=== PATIENT | male | born 1950 | race Caucasian/White ===

== ENCOUNTER 2017-09-19 15:18 | Emergency (ER) | payer OTHER ==
--- NOTE | 2017-09-19 15:24 | PDOC ---
History of Present Illness - General Chief Complaint: Pain Stated Complaint: HIP PAIN Time Seen by Provider: 09/19/17 15:23 Past History - Past Medical History Allergies/Adverse Reactions: Allergies Allergy/AdvReac Type Severity Reaction Status Date / Time No Known Allergies Allergy Verified 09/19/17 15:21
[2017-09-19 15:37] VITALS: TEMP 98.6; BMI 28.8
--- NOTE | 2017-09-19 17:17 | PDOC ---
History of Present Illness - General History Source: Patient Exam Limitations: No Limitations - History of Present Illness Initial Comments: 09/19/17 18:41 The patient is a 66-year-old male living at [facility], with a significant past medical history of HTN, COPD, paranoid schizophrenia, who presents to the ED with left hip discomfort and difficulty ambulating today. The patient states that he feels unsteady on his feet. He denies any falls or injuries. He reports experiencing these symptoms in the past. It is unclear when the patient was last walking normally. The patient denies any fever, chills, nausea, vomiting, diarrhea, or abdominal pain. Denies any chest pain or shortness of breath. Denies any urinary complaints or changes in bowel movement. Denies any dizziness or lightheadedness. Denies any headache. Allergies: NKA <Nayely Bowling - Last Filed: 09/19/17 18:43> <Neo Mcdonnell - Last Filed: 09/19/17 19:40> - General Chief Complaint: Pain Stated Complaint: HIP PAIN Time Seen by Provider: 09/19/17 15:23 Past History <Nayely Bowling - Last Filed: 09/19/17 18:43> - Past Medical History COPD: Yes Psychiatric Problems: Yes (schizophrenia parnoid type) Other medical history: hep c - Suicide/Smoking/Psychosocial Hx Smoking History: Current every day smoker Have you smoked in the past 12 months: No Number of Cigarettes Smoked Daily: 15 Information on smoking cessation initiated: No Hx Alcohol Use: No Drug/Substance Use Hx: No Substance Use Type: None <Neo Mcdonnell - Last Filed: 09/19/17 19:40> - Past Medical History Allergies/Adverse Reactions: Allergies Allergy/AdvReac Type Severity Reaction Status Date / Time No Known Allergies Allergy Verified 09/19/17 15:26 Home Medications: Ambulatory Orders Aspirin [ASA -] 81 mg PO DAILY 09/19/17 Divalproex [Depakote -] 500 mg PO BID 09/19/17 Fenofibrate Nanocrystallized [Fenofibrate] 145 mg PO DAILY 09/19/17 Quetiapine Fumarate [Seroquel -] 50 mg PO HS 09/19/17 Review of Systems - Review of Systems Able to Perform ROS?: Yes Comments:: 09/19/17 18:49 A complete review of 10 out of 10 review of systems is taken and is negative apart from what is previously mentioned below and in the HPI. <Nayely Bowling - Last Filed: 09/19/17 18:43> *Physical Exam - Vital Signs Last Vital Signs Temp Pulse Resp BP Pulse Ox 98.6 F 59 L 16 127/75 100 09/19/17 15:20 09/19/17 15:20 09/19/17 15:20 09/19/17 15:20 09/19/17 15:20 - Physical Exam Comments: 09/19/17 18:49 Vitals: Triage Vital signs reviewed General Appearance: no acute distress, well nourished well developed, Head: Atraumatic, normocephalic Eyes: Pupils equal reactive round, extraocular movement intact Neck: Supple;No Nuchal rigidity Chest Wall: Nontender Cardiac: Regular rate and rhythm, no murmurs, no rubs, no gallops, Lungs: Clear to auscultation bilateral, good air movement bilaterally, Abdomen: Soft, nondistended, normal bowel sounds, nontender to palpation Rectal: Exam deferred Extremities: (+)Left inguinal pelvic pain, left leg weakness. No cyanosis, clubbing, or edema Skin: Warm and dry, no rashes or lesions, no petechiae Neuro: AOX3; Cranial Nerves 2-12 grossly intact, Sensation intact to all extremities Psych: normal mood, normal affect <Nayely Bowling - Last Filed: 09/19/17 18:43> - Vital Signs Last Vital Signs Temp Pulse Resp BP Pulse Ox 98.6 F 59 L 16 127/75 100 09/19/17 15:20 09/19/17 15:20 09/19/17 15:20 09/19/17 15:20 09/19/17 15:20 <Neo Mcdonnell - Last Filed: 09/19/17 19:40> Heart Score/ECG Review - ECG Impressions Comment:: 09/19/17 18:32 <Neo Mcdonnell - Last Filed: 09/19/17 19:40> ED Treatment Course - LABORATORY CBC & Chemistry Diagram: 09/19/17 17:33 09/19/17 17:33 <Nayely Bowling - Last Filed: 09/19/17 18:43> - LABORATORY CBC & Chemistry Diagram: 09/19/17 17:33 09/19/17 17:33 <Neo Mcdonnell - Last Filed: 09/19/17 19:40> Medical Decision Making - Medical Decision Making Addendum: Patient's neurologic motor examination. He has good strength at the foot with flexion good strength at the knee and is able to hold his left leg above the bed for greater than 5 seconds however during this portion examination patient began to experience pain and discomfort in his hip Patient complaining of left hip discomfort difficulty walking states has had this issue in the past although secondary schizophrenia unclear exact onset. Denies history of trauma. Leg is slightly weak but this may be secondary to pain. It appears that he has had difficulty walking all morning unclear last normal potentially yesterday or even earlier We will obtain head CT labs hip x-ray pain medication observing reassessed. Reevaluation patient able to comfortably walk around the emergency department after IV Tylenol. No acute findings on imaging just some arthritis in the left hip. Patient provided with orthopedic follow-up Findings, the need for follow-up and strict return instructions discussed with patient. 09/19/17 19:39 <Neo Mcdonnell - Last Filed: 09/19/17 19:40> *DC/Admit/Observation/Transfer - Attestations Scribe Attestion: 09/19/17 18:51 Documentation prepared by Nayely Bowling, acting as medical technicians for Neo Mcdonnell MD. <Nayely Bowling - Last Filed: 09/19/17 18:43> - Discharge Dispostion Decision to Admit order: No <Neo Mcdonnell - Last Filed: 09/19/17 19:40> Diagnosis at time of Disposition: Hip pain Qualifiers: Laterality: left Qualified Code(s): M25.552 - Pain in left hip - Discharge Dispostion Disposition: HOME - Referrals Referrals: Vitaliy Murray MD [Staff Physician] - - Patient Instructions Printed Discharge Instructions: DI for Osteoarthritis Additional Instructions: Ice affected hip 20 minutes on 20 minutes off. Take [id number] Tylenol as directed on package. Follow-up with Dr. Mark orthopedics within 1-2 days. Return to emergency Department for severe worsening symptoms or for any concerns.
[2017-09-19] MEDS ORDERED: ACETAMINOPHEN 1000 MG/100 ML VIAL (NON FORMULARY) IVPB ONE (17:42)
[2017-09-19] MEDS ORDERED: ACETAMINOPHEN INJECTION 100 ML IVPB ONE (17:43)
[2017-09-19 18:06] LABS: BASO % 0.6 % (0-2.0); EOS % 4.4 % (0-4.5); HEMOGLOBIN 13.9 GM/dL (11.7-16.9); LYMPH % 41.9 % (8-40); MCH 31.8 pg (25.7-33.7); MCHC 33.9 g/dl (32.0-35.9); MEAN CELL VOLUME 93.8 fl (80-96); MEAN PLT VOLUME 7.6 fl (7.5-11.1); MONO % 9.9 % (3.8-10.2); NEUT % 43.2 % (42.8-82.8); PLATELET COUNT 268 K/MM3 (134-434); RBC 4.37 M/mm3 (4.00-5.60); RDW 14.1 % (11.9-15.9); WHITE BLOOD COUNT 9.4 K/mm3 (4.0-10.0)
[2017-09-19 18:28] VITALS: BP 125/72; PULSE 61
[2017-09-19 18:34] LABS: ALBUMIN 3.3 g/dl (3.4-5.0); ANION GAP 7 (8-16); BLOOD UREA NITROGEN 13 mg/dL (7-18); CHLORIDE 98 mmol/L (98-107); CO2 29 mmol/L (21-32); CREATININE 0.6 mg/dL (0.7-1.3); GLUCOSE,RANDOM 79 mg/dL (74-106); POTASSIUM 5.5 mmol/L (3.5-5.1); SGOT/AST 33 U/L (15-37); SGPT/ALT 38 U/L (12-78); SODIUM 134 mmol/L (136-145)
[2017-09-19 18:35] LABS: ALK PHOS 46 U/L (45-117); BILIRUBIN,TOTAL 0.5 mg/dL (0.2-1.0)
[2017-09-19 19:51] LABS: URINE APPEARANCE CLEAR; URINE BILIRUBIN NEGATIVE (<2.0 mg/dL); URINE COLOR DKYELLOW; URINE GLUCOSE (UA) NEGATIVE (NEGATIVE); URINE KETONE TRACE (NEGATIVE); URINE LEUK ESTERASE NEGATIVE (NEGATIVE); URINE NITRITE NEGATIVE (NEGATIVE); URINE PROTEIN NEGATIVE (NEGATIVE); URINE UROBILINOGEN 4.0 E.U/dl mg/dL (0.2-1.0)
--- NOTE | 2017-09-20 09:14 | EKG ---
Test Reason : Blood Pressure : / mmHG Vent. Rate : 058 BPM Atrial Rate : 058 BPM P-R Int : 144 ms QRS Dur : 096 ms QT Int : 402 ms P-R-T Axes : 049 045 059 degrees QTc Int : 394 ms SINUS BRADYCARDIA NON-SPECIFIC INTRA-VENTRICULAR CONDUCTION DELAY WHEN COMPARED WITH ECG OF 18-APR-2006 16:53, NO SIGNIFICANT CHANGE WAS FOUND Confirmed by KESHIA WAGONER MD ([id number]) on 09/20/2017 9:14:05 AM Referred By: Confirmed By:KESHIA WAGONER MD
== END 2017-09-19 21:44 | disposition home or self-care (01) ==
LOC: JER 15:18
PROC: 3E033NZ Introduction of Analgesics, Hypnotics, Sedatives into Peripheral Vein, Percutaneous Approach (ICD-10-PCS; principal; 2017-09-19)
DX: M13.852 Other specified arthritis, left hip (principal); I10 Essential (primary) hypertension; J44.9 Chronic obstructive pulmonary disease, unspecified; F20.0 Paranoid schizophrenia; F17.210 Nicotine dependence, cigarettes, uncomplicated; Z79.82 Long term (current) use of aspirin
CPT/HCPCS: 36415; 70450-TC; 71045-TC-FY; 73523-TC-FY; 80053; 81003; 85025; 87086; 93005; 93010; 99284-25; J0131

== ENCOUNTER 2017-10-29 12:13 | Observation (INO) | payer OTHER ==
[2017-10-29 12:39] VITALS: BMI 23.3
--- NOTE | 2017-10-29 13:37 | PDOC ---
History of Present Illness - General Chief Complaint: Weakness Stated Complaint: WEAKNESS - History of Present Illness Initial Comments: 10/29/17 14:06 66-year-old male presents to the emergency room for evaluation of generalized weakness over the past 2 weeks associated with cough. Patient denies fever, chills but states 3 weeks "tripped over tile and landed on his left side but denies any head injury and went to [facility] emergency room where he was cleared and sent back to his assisted living facility where he resides. Patient denies recent change in medications, recent travel, recent illness. Patient does have history of COPD secondary to smoking and schizophrenia paranoid type. Past History - Past Medical History Allergies/Adverse Reactions: Allergies Allergy/AdvReac Type Severity Reaction Status Date / Time No Known Allergies Allergy Verified 09/19/17 15:26 Home Medications: Ambulatory Orders Aspirin [ASA -] 81 mg PO DAILY 09/19/17 Divalproex [Depakote -] 500 mg PO BID 09/19/17 Fenofibrate Nanocrystallized [Fenofibrate] 145 mg PO DAILY 09/19/17 Quetiapine Fumarate [Seroquel -] 50 mg PO HS 09/19/17 COPD: Yes Psychiatric Problems: Yes (schizophrenia parnoid type) - Suicide/Smoking/Psychosocial Hx Smoking History: Current every day smoker Have you smoked in the past 12 months: Yes Number of Cigarettes Smoked Daily: 20 Information on smoking cessation initiated: No Hx Alcohol Use: No Drug/Substance Use Hx: No Substance Use Type: None *Physical Exam - Vital Signs Last Vital Signs Temp Pulse Resp BP Pulse Ox 99.7 F H 70 20 122/83 97 10/29/17 12:37 10/29/17 12:37 10/29/17 12:37 10/29/17 12:37 10/29/17 12:37 - Physical Exam General Appearance: Yes: Nourished, Appropriately Dressed. No: Apparent Distress HEENT: positive: EOMI, NATE, TMs Normal, Pharynx Normal. negative: Pale Conjunctivae Neck: positive: Supple Respiratory/Chest: positive: Lungs Clear, Normal Breath Sounds. negative: Respiratory Distress, Accessory Muscle Use Cardiovascular: positive: Regular Rhythm, Regular Rate. negative: Murmur Gastrointestinal/Abdominal: positive: Soft. negative: Tenderness Extremity: positive: Normal Capillary Refill. negative: Pedal Edema Integumentary: positive: Dry, Warm Neurologic: positive: Motor Strength 5/5 (ambulatory) Heart Score/ECG Review - ECG Intrepretation Rhythm: Regular Rhythm (Rate 59. Normal sinus rhythm. No ST elevation or depression. Intervals are regular.) ED Treatment Course - LABORATORY CBC & Chemistry Diagram: 10/29/17 15:00 10/29/17 15:00 Medical Decision Making - Medical Decision Making 10/29/17 14:06 Patient here for evaluation of generalized weakness, cough for the past 3 weeks without any associated symptoms. Patient states that there is no consistency of COPD patient ordered for labs, chest x-ray, EKG and urine. 10/29/17 16:41 Laboratory Tests 10/29/17 10/29/17 10/29/17 15:00 15:00 15:00 WBC 9.3 Hgb 13.8 Hct 40.1 Neutrophils % 48.1 Sodium 129 L Potassium 5.1 Chloride 98 Carbon Dioxide 30 Anion Gap 1 L BUN 7 Creatinine 0.7 Random Glucose 91 Lactic Acid 2.7 H* Calcium 9.1 Magnesium 2.0 Total Bilirubin 0.4 ALT 35 Alkaline Phosphatase 59 Creatine Kinase 282 Creatine Kinase Index 1.0 Total Protein 7.1 Albumin 3.5 Lipase ordered. 2 L of normal saline ordered secondary to hyponatremia elevated lactic acid. 10/29/17 16:42 Chest x-ray negative for infiltrate. Urine pending 10/29/17 18:35 Laboratory Tests 10/29/17 18:19 VBG pH 7.46 H POC VBG pCO2 25.6 L POC VBG pO2 77.2 H Mixed VBG HCO3 17.9 L Case discussed Surendra, resident for hospitalist service. Will admit to m/s obs. *DC/Admit/Observation/Transfer Diagnosis at time of Disposition: Hyponatremia, Weakness, Elevated lactic acid level - Discharge Dispostion Decision to Admit order: Yes - Referrals Referrals: Ulises Garcia [Primary Care Provider] - - Patient Instructions - Post Discharge Activity
[2017-10-29 15:29] LABS: BASO % 0.4 % (0-2.0); HEMATOCRIT 40.1 % (35.4-49); HEMOGLOBIN 13.8 GM/dL (11.7-16.9); LYMPH % 40.8 % (8-40); MCH 32.2 pg (25.7-33.7); MCHC 34.3 g/dl (32.0-35.9); MEAN CELL VOLUME 93.8 fl (80-96); MONO % 8.7 % (3.8-10.2); NEUT % 48.1 % (42.8-82.8); PLATELET COUNT 318 K/MM3 (134-434); RBC 4.28 M/mm3 (4.00-5.60); RDW 14.7 % (11.9-15.9); WHITE BLOOD COUNT 9.3 K/mm3 (4.0-10.0)
[2017-10-29 15:50] LABS: ALBUMIN 3.5 g/dl (3.4-5.0); ANION GAP 1 (8-16); BILIRUBIN,TOTAL 0.4 mg/dL (0.2-1.0); BLOOD UREA NITROGEN 7 mg/dL (7-18); CALCIUM 9.1 mg/dL (8.5-10.1); CHLORIDE 98 mmol/L (98-107); CO2 30 mmol/L (21-32); CREATININE 0.7 mg/dL (0.7-1.3); GLUCOSE,RANDOM 91 mg/dL (74-106); POTASSIUM 5.1 mmol/L (3.5-5.1); SGOT/AST 26 U/L (15-37); SGPT/ALT 35 U/L (12-78); SODIUM 129 mmol/L (136-145); TOT PROT 7.1 g/dl (6.4-8.2)
[2017-10-29 15:53] LABS: ALK PHOS 59 U/L (45-117)
[2017-10-29] MEDS ORDERED: SODIUM CHLORIDE 1,000 ML IV STA ×2 (16:40→16:41)
[2017-10-29 18:33] LABS: VENOUS PH 7.46 (7.32-7.42)
[2017-10-29 18:34] LABS: VENOUS PC02 25.6 mmHg (38-52); VENOUS PO2 77.2 mmHg (28-48)
[2017-10-29 19:13] LABS: URINE APPEARANCE CLEAR; URINE BILIRUBIN NEGATIVE (<2.0 mg/dL); URINE COLOR YELLOW; URINE GLUCOSE (UA) NEGATIVE (NEGATIVE); URINE KETONE NEGATIVE (NEGATIVE); URINE LEUK ESTERASE NEGATIVE (NEGATIVE); URINE NITRITE NEGATIVE (NEGATIVE); URINE PROTEIN NEGATIVE (NEGATIVE)
--- NOTE | 2017-10-29 21:58 | HP ---
CHIEF COMPLAINT: weakness PCP: Dr. Ulises Garcia HISTORY OF PRESENT ILLNESS: Pt is a 66 y/o M with PMH COPD, kidney stones, Hep C (failed s/p failed interferon therapy), ? cirrhosis, [facility] Paranoid Schizophrenia who presents to ED from [facility] for weakness and unsteady gait. Pt is an inconsistent historian. Pt unclear about duration of symptoms; initially stated 2 weeks, later stated 6 months, and later reported 10 years of symptoms. Pt states he had a fall in which he hit his left ribs. He went to [facility] at that time and reports being told that he had "contusions" on his ribs. ER course was notable for: (1) labs significant for Na 129, LA 2.7 -> 0.8 (s/p NS) (2) CXR unremarkable (3) Recent Travel: denies PAST MEDICAL HISTORY: COPD, kidney stones, Hep C (failed s/p failed interferon therapy), ? cirrhosis, BPH (sees [facility]), Paranoid Schizophrenia PAST SURGICAL HISTORY: denies Social History: Smokinppd x 40 years Alcohol: heavy drinker 30 years ago Drugs: marijuana, LSD, heroin (quit in 1974, not on methadone), cocaine, and "others". Pt has history of IVDA many years ago. Family History: Allergies No Known Allergies Allergy (Verified 10/29/17 19:01) HOME MEDICATIONS: Home Medications Medication Instructions Recorded Aspirin [ASA -] 81 mg PO DAILY 09/19/17 Divalproex [Depakote -] 500 mg PO BID 09/19/17 Fenofibrate Nanocrystallized 145 mg PO DAILY 09/19/17 [Fenofibrate] Quetiapine Fumarate [Seroquel -] 50 mg PO HS 09/19/17 REVIEW OF SYSTEMS CONSTITUTIONAL: Absent: fever, chills, diaphoresis, generalized weakness, malaise, loss of appetite, weight change HEENT: Absent: rhinorrhea, nasal congestion, throat pain, throat swelling, difficulty swallowing, mouth swelling, ear pain, eye pain, visual changes CARDIOVASCULAR: Absent: chest pain, syncope, palpitations, irregular heart rate, lightheadedness , peripheral edema RESPIRATORY: Absent: cough, shortness of breath, dyspnea with exertion, orthopnea, wheezing, stridor, hemoptysis GASTROINTESTINAL: Absent: abdominal pain, abdominal distension, nausea, vomiting, diarrhea, constipation, melena, hematochezia GENITOURINARY: Absent: dysuria, frequency, urgency, hesitancy, hematuria, flank pain, genital pain MUSCULOSKELETAL: Absent: myalgia, arthralgia, joint swelling, back pain, neck pain SKIN: Absent: rash, itching, pallor HEMATOLOGIC/IMMUNOLOGIC: Absent: easy bleeding, easy bruising, lymphadenopathy, frequent infections ENDOCRINE: Absent: unexplained weight gain, unexplained weight loss, heat intolerance, cold intolerance NEUROLOGIC: generalized weakness, unsteady gait Absent: headache, focal weakness or paresthesias, dizziness, seizure, mental status changes, bladder or bowel incontinence PSYCHIATRIC: Absent: anxiety, depression, suicidal or homicidal ideation, hallucinations. PHYSICAL EXAMINATION Vital Signs - 24 hr 10/29/17 10/29/17 12:37 16:45 Temperature 99.7 F H 98.6 F Pulse Rate 70 Pulse Rate [ 82 Apical] Respiratory 20 16 Rate Blood Pressure 122/83 Blood Pressure 138/78 [Left Arm] O2 Sat by Pulse 97 99 Oximetry (%) Gen: NAD, AAOx3 HEENT: NCAT, PERRL, EOMI Neck: supple, no jvd Cardio: distant heart sounds, normal s1s2, rrr, no m/r/g Pulm: Cta b/l Abd: soft, nontender, +BS, RUQ nontender mass (attached to deep structures and freely mobile on deep respirations), palpable abdominal aortic pulsation, no abdominal bruits Ext: 2+ pulses, no edema Neuro: no focal deficits. CN 2-12 intact. Strength/sensation throughout. Gait unremarkable. Laboratory Results - last 24 hr 10/29/17 10/29/17 10/29/17 15:00 15:00 15:00 WBC 9.3 RBC 4.28 Hgb 13.8 Hct 40.1 MCV 93.8 MCH 32.2 MCHC 34.3 RDW 14.7 Plt Count 318 MPV 7.0 L Absolute Neuts (auto) 4.5 Neutrophils % 48.1 Lymphocytes % 40.8 H Monocytes % 8.7 Eosinophils % 2.0 Basophils % 0.4 Nucleated RBC % 0 VBG pH POC VBG pCO2 POC VBG pO2 Mixed VBG HCO3 Sodium 129 L Potassium 5.1 Chloride 98 Carbon Dioxide 30 Anion Gap 1 L BUN 7 Creatinine 0.7 Creat Clearance w eGFR > 60 Random Glucose 91 Lactic Acid 2.7 H* Calcium 9.1 Magnesium 2.0 Total Bilirubin 0.4 AST 26 D ALT 35 Alkaline Phosphatase 59 Creatine Kinase 282 Creatine Kinase Index 1.0 CK-MB (CK-2) 2.98 Troponin I < 0.02 Total Protein 7.1 Albumin 3.5 Lipase Urine Color Urine Appearance Urine pH Ur Specific [place] Urine Protein Urine Glucose (UA) Urine Ketones Urine Blood Urine Nitrite Urine Bilirubin Urine Urobilinogen Ur Leukocyte Esterase 10/29/17 10/29/17 10/29/17 18:12 18:12 18:19 WBC RBC Hgb Hct MCV MCH MCHC RDW Plt Count MPV Absolute Neuts (auto) Neutrophils % Lymphocytes % Monocytes % Eosinophils % Basophils % Nucleated RBC % VBG pH 7.46 H POC VBG pCO2 25.6 L POC VBG pO2 77.2 H Mixed VBG HCO3 17.9 L Sodium Potassium Chloride Carbon Dioxide Anion Gap BUN Creatinine Creat Clearance w eGFR Random Glucose Lactic Acid 0.8 Calcium Magnesium Total Bilirubin AST ALT Alkaline Phosphatase Creatine Kinase Creatine Kinase Index CK-MB (CK-2) Troponin I Total Protein Albumin Lipase 138 Urine Color Urine Appearance Urine pH Ur Specific [place] Urine Protein Urine Glucose (UA) Urine Ketones Urine Blood Urine Nitrite Urine Bilirubin Urine Urobilinogen Ur Leukocyte Esterase 10/29/17 18:24 WBC RBC Hgb Hct MCV MCH MCHC RDW Plt Count MPV Absolute Neuts (auto) Neutrophils % Lymphocytes % Monocytes % Eosinophils % Basophils % Nucleated RBC % VBG pH POC VBG pCO2 POC VBG pO2 Mixed VBG HCO3 Sodium Potassium Chloride Carbon Dioxide Anion Gap BUN Creatinine Creat Clearance w eGFR Random Glucose Lactic Acid Calcium Magnesium Total Bilirubin AST ALT Alkaline Phosphatase Creatine Kinase Creatine Kinase Index CK-MB (CK-2) Troponin I Total Protein Albumin Lipase Urine Color Yellow Urine Appearance Clear Urine pH 6.0 Ur Specific [place] 1.017 Urine Protein Negative Urine Glucose (UA) Negative Urine Ketones Negative Urine Blood Negative Urine Nitrite Negative Urine Bilirubin Negative Urine Urobilinogen 2.0 Ur Leukocyte Esterase Negative ASSESSMENT/PLAN: Pt is a 66 y/o M with PMH COPD, kidney stones, Hep C (failed s/p failed interferon therapy), ? cirrhosis, BPH (sees [facility]), Paranoid Schizophrenia, who presented to ED with complaint of weakness of unclear duration. Labs revealed hyponatremia. #Hyponatremia -acute change since last visit -Pt states his risperidol was recently discontinued and he was started on a new medication to help with sleep. He thinks it may be Seroquel. -Psych consult. Possibly, medication adjustment required -Uosm -Sosm -Ulytes -TSH -Utox, EtOH -monitor Na -fluid restriction #Unsteady gait -Head CT -Fall risk precautions -bedrest -likely 2/2 low Na #Hep C -Per pt, failed interferon therapy years ago -HCV PCR -Pt advised to go to hepatology clinic on discharge -Abdominal US #Palpable Ao -long smoking history -pt advised to go to vascular clinic for routine abdominal aortic screening #FEN -not on fluids -hyponatremia -NPO #PPx -Hep Sub Q #Dispo -Obs Larry Agosto MD PGY2 IM Visit type - Emergency Visit Emergency Visit: Yes ED Registration Date: 10/29/17 Care time: The patient presented to the Emergency Department on the above date and was hospitalized for further evaluation of their emergent condition. - New Patient This patient is new to me today: Yes Date on this admission: 10/29/17 - Critical Care Critical Care patient: No Hospitalist Screening - Colonoscopy Questionnaire Colonoscopy Questionnaire: Colonoscopy Questionnaire - Patient: 50 - 75 years old and never had a screening colonoscopy: Unknown History of colon or rectal polyps, or CA: Unknown History of IBD, Crohn's disease or UC: Unknown History of abdominal radiation therapy as a child: Unknown - Relative: 1 with colon or rectal CA, or polyps at age 60 or younger: Unknown Colon or rectal CA diagnosed at age 45 or younger: Unknown Multiple relatives with colon or rectal CA: Unknown - Outcome: Screening Result: Negative Screen
[2017-10-29] MEDS ORDERED: QUEtiapine FUMARATE 50 MG TABLET PO SCH (22:00)
--- NOTE | 2017-10-29 22:04 | PN ---
Teaching Attending Note Name of Resident: Larry Agosto ATTENDING PHYSICIAN STATEMENT I saw and evaluated the patient. Chart, data, imaging reviewed. I reviewed the resident's note and discussed the case with the resident. I agree with the resident's findings and plan as documented. SUBJECTIVE: 66 y/o M with PMH COPD, kidney stones, Hep C (failed s/p failed interferon therapy), [facility] Paranoid Schizophrenia who presented from [facility] for weakness and unsteady gait for several weeks. Pt report that his psych medication was recently changed (about one month ago). He denied any pain, shortness of breath, nausea, vomiting, fevers. OBJECTIVE: Last Vital Signs Temp Pulse Resp BP Pulse Ox 98.6 F 82 16 138/78 99 10/29/17 16:45 10/29/17 16:45 10/29/17 16:45 10/29/17 16:45 10/29/17 16:45 General- nad, aaox3, unkept heent- atraumatic, poor dentition neck - supple cv-s1+S2+rrr chest cta b/l abdomen- soft, no hepatosplenomegally appreciated ext-no pedal edema appreciated Abnormal Lab Results 10/29/17 10/29/17 10/29/17 15:00 15:00 15:00 MPV 7.0 L Lymphocytes % 40.8 H VBG pH POC VBG pCO2 POC VBG pO2 Mixed VBG HCO3 Sodium 129 L Anion Gap 1 L Lactic Acid 2.7 H* 10/29/17 18:19 MPV Lymphocytes % VBG pH 7.46 H POC VBG pCO2 25.6 L POC VBG pO2 77.2 H Mixed VBG HCO3 17.9 L Sodium Anion Gap Lactic Acid ekg reviewed- sinus bradycardia, no qtc prolongation ASSESSMENT AND PLAN: 66yo man with unsteady gait and confusion likely from acute hyponatremia. May be SIADH secondary to to psych med- seroquel. Will r/o other causes such as hypothyroidism and psychogenic polydypsia. Lactic acidosis has resolved after IV fluid administration. Untreated Hep C. -observation -fall precautions -bed rest -serum osm -urine osm -urine lytes -TSH -urine drug screen -etoh level -head CT (history of falls) -1L/day fluid restriction -psych consult for psych med adjustment -hep C ab -hep C RNA pcr -liver u/s -hepatology clinic as an outpatient -c/w home medications for now -heparin sc for dvt ppx
[2017-10-29] MEDS: DIVALPROEX SODIUM 500 MG TABLET E.C. PO SCH (22:24)
[2017-10-29] MEDS: HEPARIN NA (PORCINE) 5,000 UNITS/ML 1ML VIAL SQ SCH (22:24)
[2017-10-29] MEDS ORDERED: DIVALPROEX SODIUM 125 MG TABLET E.C. ONE (23:08)
[2017-10-29] MEDS ORDERED: QUEtiapine FUMARATE 25 MG TABLET (FP) ONE (23:08)
[2017-10-29] MEDS ORDERED: HEPARIN NA (PORCINE) 5,000 UNITS/ML 1ML VIAL ONE (23:08)
[2017-10-30 00:07] LABS: ANION GAP 7 (8-16); BLOOD UREA NITROGEN 7 mg/dL (7-18); CALCIUM 8.5 mg/dL (8.5-10.1); CHLORIDE 100 mmol/L (98-107); CO2 24 mmol/L (21-32); CREATININE 0.5 mg/dL (0.7-1.3); GLUCOSE,RANDOM 82 mg/dL (74-106); POTASSIUM 4.1 mmol/L (3.5-5.1); SODIUM 131 mmol/L (136-145)
[2017-10-30] MEDS: HEPARIN NA (PORCINE) 5,000 UNITS/ML 1ML VIAL SQ SCH ×3 (06:58→21:04)
[2017-10-30 07:11] LABS: BASO % 0.5 % (0-2.0); EOS % 4.3 % (0-4.5); HEMATOCRIT 37.4 % (35.4-49); HEMOGLOBIN 13.2 GM/dL (11.7-16.9); LYMPH % 36.8 % (8-40); MCH 32.7 pg (25.7-33.7); MCHC 35.2 g/dl (32.0-35.9); MEAN CELL VOLUME 92.8 fl (80-96); MEAN PLT VOLUME 6.9 fl (7.5-11.1); MONO % 10.1 % (3.8-10.2); NEUT % 48.3 % (42.8-82.8); PLATELET COUNT 279 K/MM3 (134-434); RBC 4.03 M/mm3 (4.00-5.60); RDW 14.1 % (11.9-15.9); WHITE BLOOD COUNT 7.6 K/mm3 (4.0-10.0)
[2017-10-30 08:38] LABS: CHLORIDE 99 mmol/L (98-107); POTASSIUM 4.1 mmol/L (3.5-5.1); SODIUM 132 mmol/L (136-145)
[2017-10-30 09:30] LABS: ALK PHOS 54 U/L (45-117); ANION GAP 7 (8-16); BILIRUBIN,TOTAL 0.4 mg/dL (0.2-1.0); BLOOD UREA NITROGEN 8 mg/dL (7-18); CALCIUM 8.4 mg/dL (8.5-10.1); CO2 26 mmol/L (21-32); CREATININE 0.6 mg/dL (0.7-1.3); GLUCOSE,RANDOM 77 mg/dL (74-106); MAGNESIUM 1.9 mg/dL (1.8-2.4); PHOSPHOROUS 3.5 mg/dL (2.5-4.9); SGOT/AST 27 U/L (15-37); SGPT/ALT 32 U/L (12-78); TOT PROT 6.3 g/dl (6.4-8.2)
[2017-10-30] MEDS: ASPIRIN 81 MG CHEWABLE TABLETS PO SCH (09:42)
[2017-10-30] MEDS ORDERED: PATIENT'S OWN MEDICATION (NON-FORMULARY) (Fenofibrate Nanocrystallized [Fenofibrate] 145 M PO SCH (10:00)
--- NOTE | 2017-10-30 10:36 | EKG ---
Test Reason : Blood Pressure : / mmHG Vent. Rate : 059 BPM Atrial Rate : 059 BPM P-R Int : 140 ms QRS Dur : 098 ms QT Int : 404 ms P-R-T Axes : 048 056 067 degrees QTc Int : 399 ms SINUS BRADYCARDIA OTHERWISE NORMAL ECG WHEN COMPARED WITH ECG OF 19-SEP-2017 17:56, NO SIGNIFICANT CHANGE WAS FOUND Confirmed by FLETCHER WOLFF MD ([id number]) on 10/30/2017 10:36:32 AM Referred By: Confirmed By:FLETCHER WOLFF MD
--- NOTE | 2017-10-30 10:57 | CON.PSY ---
Psychiatry Consult Chief Complaint: 66 year old male with a long history of Schizophrenia chronic paranoid type> patient seen for psych eval. in psych meds. Seroquel was reecently started. patient apparantrly fell. - Previous Psychiatric Treatment Outpatient: Less than 6 mos ago Inpatient: One prior admission - Previous Substance Abuse Treatment Outpatient: None Inpatient: None - Reason for Previous Treatment Reason for Previous Treatment: Psychotic Episode - Current Medications Current Medications: Active Medications Aspirin (Asa -) 81 mg PO DAILY [facility] Last Admin: 10/30/17 09:42 Dose: 81 mg Divalproex Sodium (Depakote -) 500 mg PO BID [facility] Last Admin: 10/29/17 22:24 Dose: 500 mg Fenofibric Acid (Trilipix -) 135 mg PO DAILY [facility] Heparin Sodium (Porcine) (Heparin -) 5,000 unit SQ TID [facility] Last Admin: 10/30/17 06:58 Dose: 5,000 unit Quetiapine Fumarate (Seroquel -) 50 mg PO HS [facility] Last Admin: 10/29/17 22:24 Dose: 50 mg - Allergies Allergies: Allergies Allergy/AdvReac Type Severity Reaction Status Date / Time No Known Allergies Allergy Verified 10/29/17 19:01 - Current Living Status Usual Living Arrangement: Assisted Living - Current Mental Status Evaluation Appearance: Well Groomed Attitude: Cooperative - Affect Affect: Constrictive Appropriateness: Appropriate to Content - Mood Mood: Euthymic - Speech/Language Expressive: Coherent - Psychomotor Activity Psychomotor Activity: Slowed - Thought Process Thought Process: Intact, Circumstantial - Thought Content Hallucinations: Absent Delusions: Absent - Self Perception Self Perception: No Impairment - Cognition Attention: Alert Orientation: Time Memory, Immediate Recall: Intact Memory, Short Term: 2/3 Memory, Remote with Promptin/3 - Concentration Serial Sevens Intact: No Simple Calculations Intact: No - Abstraction Proverb Interpretation: Intact Judgement: Intact - Insight Insight: Intact - Impulse Control Impulse Control: Good Control - Suicidal Ideation Suicidal Ideation: No - Homicidal Ideation Homicidal Ideation: No Assessment/Plan 1) D/C Seroquel , which can cause Hypotension. 2) Continue with Depakote.
[2017-10-30] MEDS: DIVALPROEX SODIUM 500 MG TABLET E.C. PO SCH ×2 (11:42→21:04)
[2017-10-30] MEDS: FENOFIBRIC ACID 135 MG CAP PO SCH (11:43)
--- NOTE | 2017-10-30 16:34 | PN ---
Teaching Attending Note Name of Resident: Lupe Abreu ATTENDING PHYSICIAN STATEMENT I saw and evaluated the patient. I reviewed the resident's note and discussed the case with the resident. I agree with the resident's findings and plan as documented. SUBJECTIVE: Patient does not want to talk or answer questions. He will only say that he feels ok. OBJECTIVE: Vital Signs Period Temp Pulse Resp BP Sys/Woodson Pulse Ox Last 24 Hr 97.2 F-989.1 F 60-98 16-20 120-143/64-78 97-99 HEART: S1S2, RRR LUNGS: Clear ABDOMEN: Soft, non-tender, non-distended, normal BS EXTREMITIES: No edema NEUROLOGICAL: Uncooperative Laboratory Results - last 24 hr 10/29/17 10/29/17 10/29/17 15:00 18:12 18:12 WBC RBC Hgb Hct MCV MCH MCHC RDW Plt Count MPV Absolute Neuts (auto) Neutrophils % Lymphocytes % Monocytes % Eosinophils % Basophils % Nucleated RBC % VBG pH POC VBG pCO2 POC VBG pO2 Mixed VBG HCO3 Sodium Potassium Chloride Carbon Dioxide Anion Gap BUN Creatinine Creat Clearance w eGFR Random Glucose Serum Osmolality Lactic Acid 0.8 Calcium Phosphorus Magnesium Total Bilirubin AST ALT Alkaline Phosphatase Creatine Kinase Index 1.0 CK-MB (CK-2) 2.98 Total Protein Albumin Lipase 138 TSH Urine Color Urine Appearance Urine pH Ur Specific [place] Urine Protein Urine Glucose (UA) Urine Ketones Urine Blood Urine Nitrite Urine Bilirubin Urine Urobilinogen Ur Leukocyte Esterase Alcohol, Quantitative 10/29/17 10/29/17 10/29/17 18:19 18:24 23:30 WBC RBC Hgb Hct MCV MCH MCHC RDW Plt Count MPV Absolute Neuts (auto) Neutrophils % Lymphocytes % Monocytes % Eosinophils % Basophils % Nucleated RBC % VBG pH 7.46 H POC VBG pCO2 25.6 L POC VBG pO2 77.2 H Mixed VBG HCO3 17.9 L Sodium Potassium Chloride Carbon Dioxide Anion Gap BUN Creatinine Creat Clearance w eGFR Random Glucose Serum Osmolality 271 L Lactic Acid Calcium Phosphorus Magnesium Total Bilirubin AST ALT Alkaline Phosphatase Creatine Kinase Index CK-MB (CK-2) Total Protein Albumin Lipase TSH Urine Color Yellow Urine Appearance Clear Urine pH 6.0 Ur Specific [place] 1.017 Urine Protein Negative Urine Glucose (UA) Negative Urine Ketones Negative Urine Blood Negative Urine Nitrite Negative Urine Bilirubin Negative Urine Urobilinogen 2.0 Ur Leukocyte Esterase Negative Alcohol, Quantitative 10/29/17 10/29/17 10/30/17 23:30 23:30 07:00 WBC 7.6 RBC 4.03 Hgb 13.2 Hct 37.4 MCV 92.8 MCH 32.7 MCHC 35.2 RDW 14.1 Plt Count 279 MPV 6.9 L Absolute Neuts (auto) 3.7 Neutrophils % 48.3 Lymphocytes % 36.8 Monocytes % 10.1 Eosinophils % 4.3 D Basophils % 0.5 Nucleated RBC % 0 VBG pH POC VBG pCO2 POC VBG pO2 Mixed VBG HCO3 Sodium 131 L Potassium 4.1 Chloride 100 Carbon Dioxide 24 Anion Gap 7 L BUN 7 Creatinine 0.5 L Creat Clearance w eGFR > 60 Random Glucose 82 Serum Osmolality Lactic Acid Calcium 8.5 Phosphorus Magnesium Total Bilirubin AST ALT Alkaline Phosphatase Creatine Kinase Index CK-MB (CK-2) Total Protein Albumin Lipase TSH Urine Color Urine Appearance Urine pH Ur Specific [place] Urine Protein Urine Glucose (UA) Urine Ketones Urine Blood Urine Nitrite Urine Bilirubin Urine Urobilinogen Ur Leukocyte Esterase Alcohol, Quantitative < 5.0 10/30/17 07:00 WBC RBC Hgb Hct MCV MCH MCHC RDW Plt Count MPV Absolute Neuts (auto) Neutrophils % Lymphocytes % Monocytes % Eosinophils % Basophils % Nucleated RBC % VBG pH POC VBG pCO2 POC VBG pO2 Mixed VBG HCO3 Sodium 132 L Potassium 4.1 Chloride 99 Carbon Dioxide 26 Anion Gap 7 L BUN 8 Creatinine 0.6 L Creat Clearance w eGFR > 60 Random Glucose 77 Serum Osmolality Lactic Acid Calcium 8.4 L Phosphorus 3.5 Magnesium 1.9 Total Bilirubin 0.4 AST 27 ALT 32 Alkaline Phosphatase 54 Creatine Kinase Index CK-MB (CK-2) Total Protein 6.3 L Albumin 3.0 L Lipase TSH 0.94 Urine Color Urine Appearance Urine pH Ur Specific [place] Urine Protein Urine Glucose (UA) Urine Ketones Urine Blood Urine Nitrite Urine Bilirubin Urine Urobilinogen Ur Leukocyte Esterase Alcohol, Quantitative Current Medications Generic Name Dose Route Start Last Admin Trade Name Freq PRN Reason Stop Dose Admin Aspirin 81 mg 10/30/17 10:00 10/30/17 09:42 Asa - PO 81 mg DAILY MARIN Administration Divalproex Sodium 500 mg 10/29/17 22:00 10/30/17 11:42 Depakote - PO 500 mg BID MARIN Administration Fenofibric Acid 135 mg 10/30/17 10:00 10/30/17 11:43 Trilipix - PO 135 mg DAILY MARIN Administration Heparin Sodium (Porcine) 5,000 unit 10/29/17 22:00 10/30/17 13:34 Heparin - SQ 5,000 unit TID MARIN Administration ASSESSMENT AND PLAN: This is a 66 year old man with a history of COPD, hepatitis C, BPH, schizophrenia, kidney stones who presented to the ED with weakness and feeling unsteady when walking. 1. Hyponatremia - Possibly secondary to medications (Depakote), SIADH - Improving with fluid restriction 2. Weakness, unsteady gait - Psychiatry consult appreciated - Seroquel discontinued because it can cause hypotension - Physical therapy kieraal
--- NOTE | 2017-10-30 18:57 | PN ---
Physical Exam: SUBJECTIVE: Patient seen and examined at bedside. Pt was agitated when interviewed for exam this AM. Pt only complains of wanting food. Denies fever, chills, nausea/vomiting. Admits to unsteady gait. OBJECTIVE: Vital Signs Period Temp Pulse Resp BP Sys/Woodson Pulse Ox Last 24 Hr 97.2 F-989.1 F 58-98 16-20 120-143/64-76 97-98 Gen: NAD, AAOx3 HEENT: NCAT, PERRL, EOMI Neck: supple, no jvd Cardio: distant heart sounds, normal s1s2, rrr, no m/r/g Pulm: Cta b/l Abd: soft, nontender, +BS, RUQ nontender mass (attached to deep structures and freely mobile on deep respirations), palpable abdominal aortic pulsation, no abdominal bruits Ext: 2+ pulses, no edema Neuro: no focal deficits. CN 2-12 intact. Strength/sensation throughout. Gait unremarkable. Laboratory Results - last 24 hr 10/29/17 10/29/17 10/29/17 18:12 18:12 18:24 WBC RBC Hgb Hct MCV MCH MCHC RDW Plt Count MPV Absolute Neuts (auto) Neutrophils % Lymphocytes % Monocytes % Eosinophils % Basophils % Nucleated RBC % Sodium Potassium Chloride Carbon Dioxide Anion Gap BUN Creatinine Creat Clearance w eGFR Random Glucose Serum Osmolality Lactic Acid 0.8 Calcium Phosphorus Magnesium Total Bilirubin AST ALT Alkaline Phosphatase Total Protein Albumin Lipase 138 TSH Urine Color Yellow Urine Appearance Clear Urine pH 6.0 Ur Specific [place] 1.017 Urine Protein Negative Urine Glucose (UA) Negative Urine Ketones Negative Urine Blood Negative Urine Nitrite Negative Urine Bilirubin Negative Urine Urobilinogen 2.0 Ur Leukocyte Esterase Negative Alcohol, Quantitative 10/29/17 10/29/17 10/29/17 23:30 23:30 23:30 WBC RBC Hgb Hct MCV MCH MCHC RDW Plt Count MPV Absolute Neuts (auto) Neutrophils % Lymphocytes % Monocytes % Eosinophils % Basophils % Nucleated RBC % Sodium 131 L Potassium 4.1 Chloride 100 Carbon Dioxide 24 Anion Gap 7 L BUN 7 Creatinine 0.5 L Creat Clearance w eGFR > 60 Random Glucose 82 Serum Osmolality 271 L Lactic Acid Calcium 8.5 Phosphorus Magnesium Total Bilirubin AST ALT Alkaline Phosphatase Total Protein Albumin Lipase TSH Urine Color Urine Appearance Urine pH Ur Specific [place] Urine Protein Urine Glucose (UA) Urine Ketones Urine Blood Urine Nitrite Urine Bilirubin Urine Urobilinogen Ur Leukocyte Esterase Alcohol, Quantitative < 5.0 10/30/17 10/30/17 07:00 07:00 WBC 7.6 RBC 4.03 Hgb 13.2 Hct 37.4 MCV 92.8 MCH 32.7 MCHC 35.2 RDW 14.1 Plt Count 279 MPV 6.9 L Absolute Neuts (auto) 3.7 Neutrophils % 48.3 Lymphocytes % 36.8 Monocytes % 10.1 Eosinophils % 4.3 D Basophils % 0.5 Nucleated RBC % 0 Sodium 132 L Potassium 4.1 Chloride 99 Carbon Dioxide 26 Anion Gap 7 L BUN 8 Creatinine 0.6 L Creat Clearance w eGFR > 60 Random Glucose 77 Serum Osmolality Lactic Acid Calcium 8.4 L Phosphorus 3.5 Magnesium 1.9 Total Bilirubin 0.4 AST 27 ALT 32 Alkaline Phosphatase 54 Total Protein 6.3 L Albumin 3.0 L Lipase TSH 0.94 Urine Color Urine Appearance Urine pH Ur Specific [place] Urine Protein Urine Glucose (UA) Urine Ketones Urine Blood Urine Nitrite Urine Bilirubin Urine Urobilinogen Ur Leukocyte Esterase Alcohol, Quantitative Active Medications Generic Name Dose Route Start Last Admin Trade Name Freq PRN Reason Stop Dose Admin Aspirin 81 mg 10/30/17 10:00 10/30/17 09:42 Asa - PO 81 mg DAILY MARIN Administration Divalproex Sodium 500 mg 10/29/17 22:00 10/30/17 11:42 Depakote - PO 500 mg BID MARIN Administration Fenofibric Acid 135 mg 10/30/17 10:00 10/30/17 11:43 Trilipix - PO 135 mg DAILY MARIN Administration Heparin Sodium (Porcine) 5,000 unit 10/29/17 22:00 10/30/17 13:34 Heparin - SQ 5,000 unit TID MARIN Administration IMAGING: Head CT: No evidence of acute intracranial hemorrhage, edema, midline shift, mass effect, or skull fracture. 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 Chronic right maxillary sinus disease. Abd U/S: Normal size liver with a slightly coarse echotexture. Please correlate with liver enzymes to rule out mild fatty infiltration versus hepatocellular disease. Adequately distended gallbladder without intraluminal stones. Right renal upper pole simple cyst measuring 4 x 3.3 cm. ASSESSMENT/PLAN: Pt is a 66 y/o M with PMH COPD, kidney stones, Hep C (failed s/p failed interferon therapy), ? cirrhosis, BPH (sees [facility]), Paranoid Schizophrenia, who presented to ED with complaint of weakness of unclear duration. Labs revealed hyponatremia. #Hyponatremia; Na today 132 < 131. -Pt states his risperidol was recently discontinued and he was started on a new medication to help with sleep. He thinks it may be Seroquel. -Per psych: d/c Seroquel, cont depakote. -Uosm -Sosm -Ulytes -TSH -Utox, EtOH -monitor Na -fluid restriction #Unsteady gait -Head CT neg -Fall risk precautions -likely 2/2 low Na -f/u PT #Hep C -Per pt, failed interferon therapy years ago -HCV PCR -Pt advised to go to hepatology clinic on discharge - Abd U/S: Normal size liver with a slightly coarse echotexture. Please correlate with liver enzymes to rule out mild fatty infiltration versus hepatocellular disease. Adequately distended gallbladder without intraluminal stones. Right renal upper pole simple cyst measuring 4 x 3.3 cm. #Palpable aortic mass -long smoking history -pt advised to go to vascular clinic for routine abdominal aortic screening #Schizophrenia -Per psych: d/c Seroquel as it can cause hypotension. Cont Depakote 500 mg PO BID. #FEN -no IVf needed -recheck lytes in AM -sodium-controlled diet #DVT PPx -Hep Sub Q Dispo -Obs Visit type - Emergency Visit Emergency Visit: Yes ED Registration Date: 10/29/17 Care time: The patient presented to the Emergency Department on the above date and was hospitalized for further evaluation of their emergent condition. - New Patient This patient is new to me today: Yes Date on this admission: 10/30/17 - Critical Care Critical Care patient: No
[2017-10-30] MEDS ORDERED: PT OWN MED DRAWER 7, Y5N ONE (20:48)
[2017-10-30 21:05] LABS: ANION GAP 11 (8-16); BLOOD UREA NITROGEN 12 mg/dL (7-18); CALCIUM 8.8 mg/dL (8.5-10.1); CHLORIDE 99 mmol/L (98-107); CO2 27 mmol/L (21-32); CREATININE 0.7 mg/dL (0.7-1.3); GLUCOSE,RANDOM 97 mg/dL (74-106); POTASSIUM 4.4 mmol/L (3.5-5.1); SODIUM 137 mmol/L (136-145)
[2017-10-31] MEDS: HEPARIN NA (PORCINE) 5,000 UNITS/ML 1ML VIAL SQ SCH ×3 (06:38→21:26)
[2017-10-31 07:58] LABS: HEMATOCRIT 40.9 % (35.4-49); HEMOGLOBIN 14.2 GM/dL (11.7-16.9); MCH 32.7 pg (25.7-33.7); MCHC 34.9 g/dl (32.0-35.9); MEAN CELL VOLUME 93.8 fl (80-96); MEAN PLT VOLUME 7.2 fl (7.5-11.1); PLATELET COUNT 314 K/MM3 (134-434); RBC 4.36 M/mm3 (4.00-5.60); RDW 14.4 % (11.9-15.9); WHITE BLOOD COUNT 9.2 K/mm3 (4.0-10.0)
[2017-10-31] MEDS ORDERED: PT OWN MED DRAWER 7, Y5N ONE (09:14)
[2017-10-31 09:17] LABS: CHLORIDE 96 mmol/L (98-107); POTASSIUM 4.6 mmol/L (3.5-5.1); SODIUM 134 mmol/L (136-145)
[2017-10-31] MEDS: FENOFIBRIC ACID 135 MG CAP PO SCH (09:48)
[2017-10-31] MEDS: ASPIRIN 81 MG CHEWABLE TABLETS PO SCH (09:48)
[2017-10-31] MEDS: DIVALPROEX SODIUM 500 MG TABLET E.C. PO SCH ×2 (09:48→21:26)
[2017-10-31 09:52] LABS: ANION GAP 12 (8-16); BLOOD UREA NITROGEN 11 mg/dL (7-18); CALCIUM 8.9 mg/dL (8.5-10.1); CO2 26 mmol/L (21-32); CREATININE 0.6 mg/dL (0.7-1.3); GLUCOSE,RANDOM 84 mg/dL (74-106)
--- NOTE | 2017-10-31 17:30 | PN ---
Physical Exam: SUBJECTIVE: Patient seen and examined at bedside. No acute events overnight. OBJECTIVE: Vital Signs Period Temp Pulse Resp BP Sys/Woodson Pulse Ox Last 24 Hr 97.5 F-98.2 F 53-93 16-20 125-131/61-76 98-98 Gen: NAD, AAOx3 HEENT: NCAT, PERRL, EOMI Neck: supple, no jvd Cardio: distant heart sounds, normal s1s2, rrr, no m/r/g Pulm: Cta b/l Abd: soft, nontender, +BS, RUQ nontender mass (attached to deep structures and freely mobile on deep respirations), palpable abdominal aortic pulsation, no abdominal bruits Ext: 2+ pulses, no edema Neuro: no focal deficits. CN 2-12 intact. Strength/sensation throughout. Gait unremarkable. Laboratory Results - last 24 hr 10/30/17 10/31/17 10/31/17 19:25 07:30 07:30 WBC 9.2 RBC 4.36 Hgb 14.2 Hct 40.9 MCV 93.8 MCH 32.7 MCHC 34.9 RDW 14.4 Plt Count 314 MPV 7.2 L Sodium 137 134 L Potassium 4.4 4.6 Chloride 99 96 L Carbon Dioxide 27 26 Anion Gap 11 12 BUN 12 11 Creatinine 0.7 0.6 L Creat Clearance w eGFR > 60 > 60 Random Glucose 97 D 84 Calcium 8.8 8.9 Active Medications Generic Name Dose Route Start Last Admin Trade Name Freq PRN Reason Stop Dose Admin Aspirin 81 mg 10/30/17 10:00 10/31/17 09:48 Asa - PO 81 mg DAILY MARIN Administration Divalproex Sodium 500 mg 10/29/17 22:00 10/31/17 09:48 Depakote - PO 500 mg BID MARIN Administration Fenofibric Acid 135 mg 10/30/17 10:00 10/31/17 09:48 Trilipix - PO Not Given DAILY [facility] Heparin Sodium (Porcine) 5,000 unit 10/29/17 22:00 10/31/17 13:19 Heparin - SQ Not Given TID [facility] ASSESSMENT/PLAN: IMAGING: Head CT: No evidence of acute intracranial hemorrhage, edema, midline shift, mass effect, or skull fracture. 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 Chronic right maxillary sinus disease. Abd U/S: Normal size liver with a slightly coarse echotexture. Please correlate with liver enzymes to rule out mild fatty infiltration versus hepatocellular disease. Adequately distended gallbladder without intraluminal stones. Right renal upper pole simple cyst measuring 4 x 3.3 cm. ASSESSMENT/PLAN: Pt is a 66 y/o M with PMH COPD, kidney stones, Hep C (failed s/p failed interferon therapy), ? cirrhosis, BPH (sees [facility]), Paranoid Schizophrenia, who presented to ED with complaint of weakness of unclear duration. Labs revealed hyponatremia. #Hyponatremia; Na today 133 < 132 < 131. -Pt states his risperidol was recently discontinued and he was started on a new medication to help with sleep. He thinks it may be Seroquel. -Per psych: d/c Seroquel, cont depakote. -Records reviewed from [facility] for recent admission of dizziness and unsteady gait. Pt's Na during hospital stay noted to be ~133-137, possibly chronic low Na. Pt's only symptom is unsteady gait. Per PT, pt ambulated well. #Unsteady gait -Head CT neg -Fall risk precautions -likely 2/2 low Na -Pt eval: tolerated ambulating well. 150 feet. #Hep C -Per pt, failed interferon therapy years ago -HCV PCR -Pt advised to go to hepatology clinic on discharge - Abd U/S: Normal size liver with a slightly coarse echotexture. Please correlate with liver enzymes to rule out mild fatty infiltration versus hepatocellular disease. Adequately distended gallbladder without intraluminal stones. Right renal upper pole simple cyst measuring 4 x 3.3 cm. #Palpable aortic mass -long smoking history -pt advised to go to vascular clinic for routine abdominal aortic screening #Schizophrenia -Per psych: d/c Seroquel as it can cause hypotension. Cont Depakote 500 mg PO BID. #FEN -no IVf needed -recheck lytes in AM -sodium-controlled diet #DVT PPx -Hep Sub Q Dispo -Obs -[facility] Visit type - Emergency Visit Emergency Visit: Yes ED Registration Date: 10/29/17 Care time: The patient presented to the Emergency Department on the above date and was hospitalized for further evaluation of their emergent condition. - New Patient This patient is new to me today: No - Critical Care Critical Care patient: No
--- NOTE | 2017-10-31 18:09 | PN ---
Teaching Attending Note Name of Resident: Lupe Abreu ATTENDING PHYSICIAN STATEMENT I saw and evaluated the patient. I reviewed the resident's note and discussed the case with the resident. I agree with the resident's findings and plan as documented. SUBJECTIVE: Patient is more cooperative today. He says he feels better. He has no complaints. OBJECTIVE: Vital Signs Period Temp Pulse Resp BP Sys/Woodson Pulse Ox Last 24 Hr 97.5 F-98.2 F 53-93 16-20 125-131/61-76 98-98 HEART: S1S2, RRR LUNGS: Clear ABDOMEN: Soft, non-tender, non-distended, normal BS EXTREMITIES: No edema NEUROLOGICAL: Non-focal Laboratory Results - last 24 hr 10/30/17 10/31/17 10/31/17 19:25 07:30 07:30 WBC 9.2 RBC 4.36 Hgb 14.2 Hct 40.9 MCV 93.8 MCH 32.7 MCHC 34.9 RDW 14.4 Plt Count 314 MPV 7.2 L Sodium 137 134 L Potassium 4.4 4.6 Chloride 99 96 L Carbon Dioxide 27 26 Anion Gap 11 12 BUN 12 11 Creatinine 0.7 0.6 L Creat Clearance w eGFR > 60 > 60 Random Glucose 97 D 84 Calcium 8.8 8.9 Current Medications Generic Name Dose Route Start Last Admin Trade Name Freq PRN Reason Stop Dose Admin Aspirin 81 mg 10/30/17 10:00 10/31/17 09:48 Asa - PO 81 mg DAILY MARIN Administration Divalproex Sodium 500 mg 10/29/17 22:00 10/31/17 09:48 Depakote - PO 500 mg BID MARIN Administration Fenofibric Acid 135 mg 10/30/17 10:00 10/31/17 09:48 Trilipix - PO Not Given DAILY MARIN Heparin Sodium (Porcine) 5,000 unit 10/29/17 22:00 10/31/17 13:19 Heparin - SQ Not Given TID MARIN ASSESSMENT AND PLAN: This is a 66 year old man with a history of COPD, hepatitis C, BPH, schizophrenia, kidney stones who presented to the ED with weakness and feeling unsteady when walking. 1. Hyponatremia - Possibly secondary to medications (Depakote), SIADH - Improved 2. Weakness, unsteady gait - Seroquel discontinued because it can cause hypotension - Continue PT - ambulating with walker 3. Hepatitis C 4. COPD - Stable 5. BPH 6. Schizophrenia - Continue Depakote 7. Disposition - Discharge to [facility]
[2017-11-01] MEDS: HEPARIN NA (PORCINE) 5,000 UNITS/ML 1ML VIAL SQ SCH (06:35)
[2017-11-01 07:25] VITALS: PULSE 57
[2017-11-01] MEDS ORDERED: PT OWN MED DRAWER 7, Y5N ONE (08:51)
[2017-11-01] MEDS: FENOFIBRIC ACID 135 MG CAP PO SCH (09:54)
[2017-11-01] MEDS: ASPIRIN 81 MG CHEWABLE TABLETS PO SCH (09:54)
[2017-11-01] MEDS: DIVALPROEX SODIUM 500 MG TABLET E.C. PO SCH (09:54)
--- NOTE | 2017-11-01 11:08 | DS ---
Physical Exam: SUBJECTIVE: No acute events overnight. OBJECTIVE: Vital Signs Period Temp Pulse Resp BP Sys/Woodson Pulse Ox Last 24 Hr 97.3 F-98.2 F 51-57 16-18 118-141/61-71 98-100 PHYSICAL EXAM Gen: NAD, AAOx3 HEENT: NCAT, PERRL, EOMI Neck: supple, no jvd Cardio: distant heart sounds, normal s1s2, rrr, no m/r/g Pulm: Cta b/l Abd: soft, nontender, +BS, RUQ nontender mass (attached to deep structures and freely mobile on deep respirations), palpable abdominal aortic pulsation, no abdominal bruits Ext: 2+ pulses, no edema Neuro: no focal deficits. CN 2-12 intact. Strength/sensation throughout. Gait unremarkable. LABS Laboratory Results - last 24 hr 10/30/17 07:00 HCV Quantitation [id number] Hepatitis C RNA 6.564 HOSPITAL COURSE: Date of Admission:10/29/17 66M w/ pmhx of COPD, kidney stones, Hep C (failed s/p failed interferon therapy) , BPH (sees [facility]), Paranoid Schizophrenia, who presented to ED with complaint of weakness of unclear duration found to have hyponatremia. Pt also complained of unsteady gait. In the ED, CXR was unremarkable. Pt was placed on fluid restriction with serial BMPs to monitor Na level. Psych was consulted for evaluation of medication-induced hyponatremia. Upon psych recommendation, Seroquel was d/c'd due to known cause of possible hypotension. During the hospital stay, pt's Na level increased with no more signs of weakness. PT was consulted for evaluation of pt's gait. Upon PT eval, pt's was able to walk well no complaints. Pt was subsequently discharged back to his psych home with instructions to stop taking Seroquel and to follow up with his primary care physician. Date of Discharge: 11/01/17 Minutes to complete discharge: 35 Discharge Summary Reason For Visit: WEAKNESS Current Active Problems Hyponatremia (Chronic) Condition: Improved - Instructions Diet, Activity, Other Instructions: You came to the hospital for generalized weakness with unsteady gait and were found to have low sodium in your blood. You were admitted to the hospital for observation. Your sodium levels improved. Because of your current psychiatric medications, your Seroquel was discontinued as this could be a cause of possible low blood pressure causing your symptoms. Additionally, you were evaluated by physical therapy and your gait also improved. You are being discharged back to [facility] with instructions to follow up with your primary care physician and to continue taking the rest of your home meds. MEDICAL RECOMMENDATIONS Please stop taking Seroquel. Please continue taking the rest of your home meds as prescribed. CONSULT RECOMMENDATIONS Please follow up with your primary care physician within 1 week. Please follow up with your psychiatrist within 1 week. If you start to experience persistent headaches/dizziness, recurrent fainting episodes, or problems with balance and coordination affecting your gait, chest pain or shortness of breath, please proceed to your closest emergency room immediately. Referrals: Ulises Garcia [Primary Care Provider] - Disposition: HOME - Home Medications Comprehensive Discharge Medication List: Ambulatory Orders Aspirin [ASA -] 81 mg PO DAILY 09/19/17 Divalproex [Depakote -] 500 mg PO BID 09/19/17 Fenofibrate Nanocrystallized [Fenofibrate] 145 mg PO DAILY 09/19/17 Quetiapine Fumarate [Seroquel -] 50 mg PO HS 09/19/17 This patient is new to me today: No Emergency Visit: Yes ED Registration Date: 10/29/17 Care time: The patient presented to the Emergency Department on the above date and was hospitalized for further evaluation of their emergent condition. Critical Care patient: No - Discharge Referral Referred to [facility] No
[2017-11-01 12:27] VITALS: BP 128/73; TEMP 98.2
--- NOTE | 2017-11-01 13:12 | PN ---
Teaching Attending Note Name of Resident: Lupe Abreu ATTENDING PHYSICIAN STATEMENT I saw and evaluated the patient. I reviewed the resident's note and discussed the case with the resident. I agree with the resident's findings and plan as documented. SUBJECTIVE: No complaints. OBJECTIVE: Vital Signs Period Temp Pulse Resp BP Sys/Woodson Pulse Ox Last 24 Hr 97.3 F-98.2 F 51-57 16-18 118-141/61-73 98-100 HEART: S1S2, RRR LUNGS: Clear ABDOMEN: Soft, non-tender, non-distended, normal BS EXTREMITIES: No edema NEUROLOGICAL: Non-focal Laboratory Results - last 24 hr 10/30/17 07:00 HCV Quantitation [id number] Hepatitis C RNA 6.564 ASSESSMENT AND PLAN: This is a 66 year old man with a history of COPD, hepatitis C, BPH, schizophrenia, kidney stones who presented to the ED with weakness and feeling unsteady when walking. 1. Hyponatremia - Possibly secondary to medications (Depakote), SIADH - Improved 2. Weakness, unsteady gait - Seroquel discontinued because it can cause hypotension - Continue ambulating with walker 3. Hepatitis C 4. COPD - Stable 5. BPH 6. Schizophrenia - Continue Depakote 7. Disposition - Discharge to [facility]
== END 2017-11-01 12:25 ==
LOC: JER 12:13 → JERBED 18:43 → J8W 10-30 01:25
PROVIDERS: ADMIT Internal Medicine; ATTEND Internal Medicine
PROC: 3E0337Z Introduction of Electrolytic and Water Balance Substance into Peripheral Vein, Percutaneous Approach (ICD-10-PCS; principal; 2017-10-29)
PROC: 3E013GC Introduction of Other Therapeutic Substance into Subcutaneous Tissue, Percutaneous Approach (ICD-10-PCS; 2017-10-29)
DX: E87.1 Hypo-osmolality and hyponatremia (principal); R53.1 Weakness; R74.0 Nonspecific elevation of levels of transaminase and lactic acid dehydrogenase [LDH]; R26.81 Unsteadiness on feet; J44.9 Chronic obstructive pulmonary disease, unspecified; F17.210 Nicotine dependence, cigarettes, uncomplicated; N40.0 Benign prostatic hyperplasia without lower urinary tract symptoms; F20.0 Paranoid schizophrenia; B18.2 Chronic viral hepatitis C
CPT/HCPCS: 36415; 70450-TC; 71045-TC-FY; 76705-TC; 80048; 80053; 80307; 81003; 82550; 82553; 82803; 83605; 83690; 83735; 83930; 84100; 84443; 84484; 85025; 85027; 87040; 87086; 87522; 93005; 93010; 96360; 96372; 97116-GP; 99283-25; G0378; J1644; J7030

== ENCOUNTER 2017-12-09 09:36 | Emergency (ER) | payer OTHER ==
[2017-12-09 10:01] VITALS: BP 119/76; PULSE 60; TEMP 98.5; BMI 27.1
--- NOTE | 2017-12-09 10:07 | PDOC ---
Attending Attestation - Resident Resident Name: Boogie Osuna - HPI HPI: 12/09/17 14:30 Pt presents to the ED after [facility] in [facility] because he refused to get out of bed today. As per DC staff, patient has been requiring a walker for the last month. He does not like to use the walker and often comes up with excuses to not use it. Patient is a difficult historian. He states that he is in the ED because he is having difficulty walking, but was unclear whether the problem was new or old. He complained of pain, but did not state where the pain was. He became angry during questioning and refused to answer more questions. - Physicial Exam PE: 12/09/17 14:39 Agree with resident exam. Patient is alert and oriented and in no acute distress. Moving all extremities. Able to lift both legs against gravity and flex both knees without dificulty. - Medical Decision Making 12/09/17 14:40 Pt presents to the ED complaining of generalized malaise and weakness. One month history of leg weakness as per jail. Appears to be neurologically intact. Labs and CT head are normal. will discharge home with referral to outpatient neurology.
[2017-12-09 10:39] LABS: BASO % 0.7 % (0-2.0); EOS % 2.5 % (0-4.5); HEMATOCRIT 40.4 % (35.4-49); HEMOGLOBIN 13.8 GM/dL (11.7-16.9); MCH 32.2 pg (25.7-33.7); MCHC 34.1 g/dl (32.0-35.9); MEAN CELL VOLUME 94.3 fl (80-96); MONO % 11.9 % (3.8-10.2); NEUT % 43.9 % (42.8-82.8); PLATELET COUNT 248 K/MM3 (134-434); RBC 4.29 M/mm3 (4.00-5.60); RDW 14.1 % (11.9-15.9); WHITE BLOOD COUNT 6.5 K/mm3 (4.0-10.0)
[2017-12-09 10:49] LABS: INR 1.1 (0.83-1.09); PROTHROMBIN TIME (PATIENT) 12.4 SEC (9.7-13.0)
--- NOTE | 2017-12-09 10:51 | PDOC ---
History of Present Illness - General Chief Complaint: Weakness Stated Complaint: WEAKNESS,PAIN Time Seen by Provider: 12/09/17 10:05 History Source: Patient Exam Limitations: No Limitations - History of Present Illness Initial Comments: 12/09/17 10:43 Patient is a 66M with history of COPD, schizophrenia, HCV, cirrhosis, past IVDA , hyponatremia admission in October here today complaining of bilateral leg weakness that started this morning. Patient states that he was unable to get out of bed this morning secondary to this weakness. Denies fevers, chills, nausea, vomiting. Endorses cough and shortness of breath, at baseline. Denies headache, chest pain. Denies sensory deficits. Denies back and neck pain. Denies dysuria and urinary frequency. Denies abdominal pain. Patient was admitted in October for hyponatremia and weakness. He was fluid restricted and sodium returned to normal. Seroquel was discontinued. Patient has been noted to give inconsistent histories in the past. Past History - Past Medical History Allergies/Adverse Reactions: Allergies Allergy/AdvReac Type Severity Reaction Status Date / Time No Known Allergies Allergy Verified 12/09/17 09:41 Home Medications: Ambulatory Orders Aspirin 81 mg PO DAILY 12/09/17 Divalproex [Depakote -] 500 mg PO BID 12/09/17 Fenofibrate Nanocrystallized [Tricor] 145 mg PO DAILY 12/09/17 Oxybutynin Chloride [Ditropan Xl] 10 mg PO DAILY 12/09/17 Risperidone [Risperdal] 4 mg PO BID 12/09/17 Tamsulosin HCl [Flomax] 0.4 mg PO DAILY 12/09/17 COPD: Yes Psychiatric Problems: Yes (SCHIZOPHRENIA PARANOID, HEP C,) - Immunization History Immunization Up to Date: Yes - Suicide/Smoking/Psychosocial Hx Smoking History: Never smoked Have you smoked in the past 12 months: Yes Number of Cigarettes Smoked Daily: 20 Information on smoking cessation initiated: No Hx Alcohol Use: No Drug/Substance Use Hx: No Substance Use Type: None Review of Systems - Review of Systems Comments:: 12/09/17 10:51 GENERAL/CONSTITUTIONAL: No fever or chills. +weakness. HEAD, EYES, EARS, NOSE AND THROAT: No change in vision. No sore throat. CARDIOVASCULAR: No chest pain +shortness of breath RESPIRATORY: +cough. No wheezing, or hemoptysis. GASTROINTESTINAL: No nausea, vomiting, diarrhea or constipation. GENITOURINARY: No dysuria, frequency, or change in urination. MUSCULOSKELETAL: No joint or muscle swelling or pain. No neck or back pain. SKIN: No rash NEUROLOGIC: No headache, vertigo, loss of consciousness, +lower ext weakness ENDOCRINE: No increased thirst. No abnormal weight change HEMATOLOGIC/LYMPHATIC: No anemia, easy bleeding, or history of blood clots. ALLERGIC/IMMUNOLOGIC: No hives or skin allergy. *Physical Exam - Vital Signs Last Vital Signs Temp Pulse Resp BP Pulse Ox 98.5 F 60 17 119/76 96 12/09/17 09:42 12/09/17 09:42 12/09/17 09:42 12/09/17 09:42 12/09/17 09:42 - Physical Exam Comments: 12/09/17 10:51 GENERAL: Awake, alert, and fully oriented, in no acute distress HEAD: Small healing laceration on forehead, normocephalic EYES: PERRLA, EOMI, sclera anicteric, conjunctiva clear ENT: Auricles normal inspection, hearing grossly normal, nares patent, oropharynx clear without exudates. Moist mucosa NECK: Normal ROM, supple, no lymphadenopathy, JVD, or masses LUNGS: No distress, speaks full sentences, clear to auscultation bilaterally HEART: Regular rate and rhythm, normal S1 and S2, no murmurs, rubs or gallops, peripheral pulses normal and equal bilaterally. ABDOMEN: Soft, nontender, normoactive bowel sounds. No guarding, no rebound. No masses EXTREMITIES: Normal inspection, Normal range of motion, no edema. No clubbing or cyanosis. NEUROLOGICAL: Cranial nerves II through XII grossly intact. Normal speech, 5/5 arm strength, 2/5 leg strength, but able to easily use leg to rollover. BACK: No signs of injury, nontender midline. SKIN: Warm, Dry, normal turgor, no rashes or lesions noted. ED Treatment Course - LABORATORY CBC & Chemistry Diagram: 12/09/17 10:26 12/09/17 10:19 - ADDITIONAL ORDERS Additional order review: 12/09/17 10:26 RBC 4.29 MCV 94.3 MCHC 34.1 RDW 14.1 MPV 7.0 L Neutrophils % 43.9 Lymphocytes % 41.0 H Monocytes % 11.9 H Eosinophils % 2.5 Basophils % 0.7 - RADIOLOGY Radiology Studies Ordered: Category Date Time Status HEAD CT WITHOUT CONTRAST [CT] Stat CT Scan 12/09/17 10:16 Ordered CHEST X-RAY PORTABLE* [RAD] Stat Radiology 12/09/17 10:16 Ordered Medical Decision Making - Medical Decision Making 12/09/17 10:53 Patient is 66M with history of COPD, schizophrenia, HCV, cirrhosis, past IVDA, hyponatremia here today complaining of weakness. Vital signs normal and stable. Exam does not suggest focal central lesion. No back pain to suggest acute cord impingement. DDx includes, but is not limited to: UTI, hyponatremia, subdural hematoma, CHF, psych. Will workup with cardiac labs, ua/uc, head ct, cxr. 12/09/17 12:57 CBC, CMP reassuring. CT shows no acute intracranial process. CXR clear. Patient reassessed, states that he still cannot lift his leg. However, when asked to bend his knee, patient is able to lift his leg off the bed easily to bend his knee. Believe that patient is likely able to ambulate. longterm contacted. Patient has been walking using a walker for the past month, but refused to get out of bed today. Patient will be able to get neuro follow up as outpatient through his group home. Discharged home. *DC/Admit/Observation/Transfer Diagnosis at time of Disposition: Weakness - Discharge Dispostion Disposition: HOME Condition at time of disposition: Good Decision to Admit order: No - Referrals Referrals: Ulises Garcia [Primary Care Provider] - Aidan Pfeiffer MD [Staff Physician] - - Patient Instructions Printed Discharge Instructions: DI for Muscle Weakness Additional Instructions: Please follow up with a neurologist regarding your weakness. Please return to the ED if you have any new, worsening or concerning symptoms. - Post Discharge Activity
[2017-12-09 11:03] LABS: CHLORIDE 100 mmol/L (98-107); POTASSIUM 5.3 mmol/L (3.5-5.1); SODIUM 135 mmol/L (136-145)
[2017-12-09 11:21] LABS: ALBUMIN 3.2 g/dl (3.4-5.0); ALK PHOS 49 U/L (45-117); ANION GAP 9 MMOL/L (8-16); BILIRUBIN,TOTAL 0.5 mg/dL (0.2-1.0); BLOOD UREA NITROGEN 9 mg/dL (7-18); CO2 26 mmol/L (21-32); CREATININE 0.6 mg/dL (0.55-1.3); GLUCOSE,RANDOM 86 mg/dL (74-106); MAGNESIUM 1.9 mg/dL (1.8-2.4); SGOT/AST 30 U/L (15-37); SGPT/ALT 34 U/L (13-61); TOT PROT 6.4 g/dl (6.4-8.2)
--- NOTE | 2017-12-09 14:32 | EKG ---
Test Reason : Blood Pressure : / mmHG Vent. Rate : 058 BPM Atrial Rate : 058 BPM P-R Int : 128 ms QRS Dur : 092 ms QT Int : 380 ms P-R-T Axes : 065 072 076 degrees QTc Int : 373 ms SINUS BRADYCARDIA OTHERWISE NORMAL ECG WHEN COMPARED WITH ECG OF 29-OCT-2017 15:07, NO SIGNIFICANT CHANGE WAS FOUND Confirmed by CELINA HILLIARD MD ([id number]) on 12/09/2017 2:32:21 PM Referred By: Confirmed By:CELINA HILLIARD MD
== END 2017-12-09 14:41 | disposition home or self-care (01) ==
LOC: JER 09:36
DX: M62.81 Muscle weakness (generalized) (principal); J44.9 Chronic obstructive pulmonary disease, unspecified; F20.9 Schizophrenia, unspecified; K74.60 Unspecified cirrhosis of liver; E87.1 Hypo-osmolality and hyponatremia
CPT/HCPCS: 36415; 70450-TC; 71045-TC-FY; 80053; 82550; 82553; 83735; 84484; 85025; 85610; 93005; 93010; 99285-25

== ENCOUNTER 2022-12-12 09:57 | Day surgery (SDC) | payer OTHER ==
[2022-12-06 13:05] VITALS: BMI 31.1
[2022-12-12 12:21] VITALS: TEMP 97.4
[2022-12-12 12:22] VITALS: RESP 18
[2022-12-12 12:32] VITALS: BP 122/60; PULSE 69
== END 2022-12-12 12:32 | disposition home or self-care (01) ==
LOC: FASU-ENDO 09:57
PROVIDERS: ATTEND Internal Medicine Gastroenterology
PROC: 0DB68ZX Excision of Stomach, Via Natural or Artificial Opening Endoscopic, Diagnostic (ICD-10-PCS; 2022-12-12)
PROC: 0DB48ZX Excision of Esophagogastric Junction, Via Natural or Artificial Opening Endoscopic, Diagnostic (ICD-10-PCS; 2022-12-12)
PROC: 0DB98ZX Excision of Duodenum, Via Natural or Artificial Opening Endoscopic, Diagnostic (ICD-10-PCS; principal; 2022-12-12 11:13)
DX: K25.9 Gastric ulcer, unspecified as acute or chronic, without hemorrhage or perforation (principal); K29.70 Gastritis, unspecified, without bleeding; B96.81 Helicobacter pylori [H. pylori] as the cause of diseases classified elsewhere; K21.00 Gastro-esophageal reflux disease with esophagitis, without bleeding
CPT/HCPCS: 88305-TC

== ENCOUNTER 2023-02-06 10:33 | Day surgery (SDC) | payer OTHER ==
[2023-02-05 16:22] VITALS: BMI 31.1
[2023-02-06] MEDS ORDERED: PROPOFOL 80 ML ONE (11:48)
[2023-02-06] MEDS ORDERED: PROPOFOL 20 ML ONE (11:48)
[2023-02-06 13:15] VITALS: BP 117/61; PULSE 56; RESP 19; TEMP 98
== END 2023-02-06 13:00 | disposition home or self-care (01) ==
LOC: FASU-ENDO 10:33
PROVIDERS: ATTEND Internal Medicine Gastroenterology
PROC: 0DB68ZX Excision of Stomach, Via Natural or Artificial Opening Endoscopic, Diagnostic (ICD-10-PCS; principal; 2023-02-06 12:21)
DX: K29.50 Unspecified chronic gastritis without bleeding (principal); Z87.19 Personal history of other diseases of the digestive system
CPT/HCPCS: 88305-TC; 88342-TC

== ENCOUNTER 2024-11-04 11:29 | Inpatient (IN) | payer OTHER ==
[2024-11-04 11:53] VITALS: BMI 30.9
[2024-11-04 12:02] LABS: ABSOLUTE IMMATURE GRANULOCYTES 0.10 x10^3/uL (0.0-0.031); BASOPHILS # 0.04 x10^3/uL (0.01-0.08); EOSINOPHIL % 0.0 % (0.8-7.0); EOSINOPHILS # 0.00 x10^3/uL (0.04-0.54); MCHC 32.3 g/dl (32.3-36.5); MEAN CELL VOLUME 95.5 fl (79.0-92.2); MEAN PLT VOLUME 9.4 fl (9.4-12.4); MONOCYTE # 1.20 x10^3/uL (0.30-0.82); MONOCYTE % 7.4 % (5.3-12.2); RDW 13.1 % (12.2-16.6)
[2024-11-04] MEDS: SODIUM CHLORIDE 0.9% 500 ML INFUS.BAG IV ONE ×2 (12:02→14:42)
[2024-11-04 12:11] LABS: INR 1.5 (0.83-1.09); PROTHROMBIN TIME (PATIENT) 16.3 SEC (9.7-13.0)
[2024-11-04 12:14] LABS: ACTIVATED PTT 31.6 SECONDS (25.2-36.5)
[2024-11-04 12:15] LABS: BG HCT 44.0 % (35.4-49); VENOUS BASE EXCESS 0.1 mmol/L (-2-2); VENOUS O2 SATURATION 47.6 % (70-80); VENOUS PCO2 43.1 mmHg (38-52); VENOUS PH 7.387 (7.310-7.410)
[2024-11-04 12:50] LABS: URINE APPEARANCE CLEAR; URINE BILIRUBIN NEGATIVE (NEGATIVE); URINE COLOR DK YELLOW; URINE GLUCOSE (UA) NEGATIVE (NEGATIVE); URINE KETONE TRACE (NEGATIVE); URINE LEUK ESTERASE NEGATIVE (NEGATIVE); URINE NITRITE NEGATIVE (NEGATIVE); URINE PROTEIN TRACE (NEGATIVE); URINE UROBILINOGEN 2.0 mg/dL (0.2-1.0)
[2024-11-04 13:22] LABS: GLUCOSE,RANDOM 98.0 mg/dL (74-106)
[2024-11-04 13:23] LABS: CO2 25.0 mmol/L (21-32); TOT PROT 6.5 g/dl (6.4-8.2)
[2024-11-04 13:25] LABS: ALK PHOS 32.0 U/L (40-150)
[2024-11-04 13:28] LABS: CREATININE 1.11 mg/dL (0.55-1.3); SGOT/AST 26.0 U/L (5-34); SGPT/ALT 21.0 U/L (0-55)
[2024-11-04] MEDS: VANCOMYCIN HCL 1,500 MG in DEXTROSE 5%-WATER - 500 ML IVPB ONE (14:43)
[2024-11-04] MEDS: VANCOMYCIN PREMIX 1.5 GM 1,500 MG/300 ML BAG IVPB ONE (15:03)
[2024-11-04] MEDS ORDERED: ACETAMINOPHEN 325 MG TABLET (FP) PO PRN (16:10)
[2024-11-04] MEDS: LACTATED RINGERS SOLUTION 1,000 ML/1,000 ML INFUS.BAG IV SCH (16:48)
[2024-11-04] MEDS: PIPERACILLIN/TAZOB 3.375 GM 3.375 GM in DEXTROSE 5%-WATER - 50 ML IVPB SCH (16:51)
[2024-11-04 18:34] LABS: HIV INTERPRETATION NEGATIVE (NEGATIVE)
[2024-11-04 20:07] LABS: HCV DIAGNOSTIC IN-HOUSE W/RFLX REACTIVE (NONREACTIVE)
[2024-11-05 07:34] LABS: MCHC 32.7 g/dl (32.3-36.5); MEAN CELL VOLUME 94.5 fl (79.0-92.2); MEAN PLT VOLUME 9.7 fl (9.4-12.4); RDW 13.1 % (12.2-16.6)
[2024-11-05 07:42] LABS: GLUCOSE,RANDOM 94.0 mg/dL (74-106)
[2024-11-05 07:43] LABS: TOT PROT 5.6 g/dl (6.4-8.2)
[2024-11-05 07:44] LABS: CO2 25.0 mmol/L (21-32)
[2024-11-05 07:46] LABS: ALK PHOS 29.0 U/L (40-150)
[2024-11-05 07:48] LABS: SGOT/AST 23.0 U/L (5-34); SGPT/ALT 20.0 U/L (0-55)
[2024-11-05 07:49] LABS: CREATININE 0.77 mg/dL (0.55-1.3)
[2024-11-05] MEDS: ENOXAPARIN NA (PORCINE) 40 MG/0.4 ML DISP.SYRIN SQ SCH (09:39)
[2024-11-05] MEDS: DIVALPROEX SODIUM 250 MG TABLET E.C. PO SCH (09:39)
[2024-11-05] MEDS: TAMSULOSIN HCL 0.4 MG CAP PO SCH (09:39)
[2024-11-05] MEDS: ACETAMINOPHEN 325 MG TABLET (FP) PO PRN (09:40)
[2024-11-06] MEDS: DOXYCYCLINE INJECTION 100 MG in DEXTROSE 5%-WATER 100 ML IVPB SCH (00:49)
[2024-11-06 06:59] LABS: ABSOLUTE IMMATURE GRANULOCYTES 0.07 x10^3/uL (0.0-0.031); BASOPHILS # 0.04 x10^3/uL (0.01-0.08); EOSINOPHIL % 1.4 % (0.8-7.0); EOSINOPHILS # 0.13 x10^3/uL (0.04-0.54); MCHC 31.5 g/dl (32.3-36.5); MEAN CELL VOLUME 95.9 fl (79.0-92.2); MEAN PLT VOLUME 10.2 fl (9.4-12.4); MONOCYTE # 1.20 x10^3/uL (0.30-0.82); MONOCYTE % 12.7 % (5.3-12.2); RDW 13.0 % (12.2-16.6)
[2024-11-06 07:02] LABS: GLUCOSE,RANDOM 84.0 mg/dL (74-106)
[2024-11-06 07:04] LABS: CO2 25.0 mmol/L (21-32)
[2024-11-06 07:08] LABS: CREATININE 0.75 mg/dL (0.55-1.3)
[2024-11-06] MEDS: PIPERACILLIN/TAZOB 3.375 GM 3.375 GM in DEXTROSE 5%-WATER - 50 ML IVPB SCH (09:44)
[2024-11-07] MEDS: ALBUTEROL SO4 2.5/IPRATROPIUM 0.5 INH SOL 3 ML VIAL.NEB. NEB PRN (01:23)
[2024-11-07] MEDS: PIPERACILLIN/TAZOB 3.375 GM 3.375 GM in DEXTROSE 5%-WATER - 50 ML IVPB SCH (01:41)
[2024-11-07] MEDS: AMPICILLIN NA/SULBACTAM NA 3 GM in SODIUM CHLORIDE 100 ML IVPB SCH (18:12)
[2024-11-08 08:11] LABS: MCHC 32.4 g/dl (32.3-36.5); MEAN CELL VOLUME 94.4 fl (79.0-92.2); MEAN PLT VOLUME 10.3 fl (9.4-12.4); RDW 12.6 % (12.2-16.6)
[2024-11-08 08:51] LABS: GLUCOSE,RANDOM 77.0 mg/dL (74-106); TOT PROT 5.9 g/dl (6.4-8.2)
[2024-11-08 08:52] LABS: CO2 25.0 mmol/L (21-32)
[2024-11-08 08:57] LABS: CREATININE 0.72 mg/dL (0.55-1.3); SGOT/AST 26.0 U/L (5-34); SGPT/ALT 33.0 U/L (0-55)
[2024-11-08 09:19] LABS: ALK PHOS 35.0 U/L (40-150)
[2024-11-08] MEDS: AMOX TR/POT CLAV 875MG/125MG TABLETS (FP) PO SCH (21:40)
[2024-11-09 11:09] VITALS: RESP 17; TEMP 98.1
[2024-11-09 15:31] VITALS: BP 146/70; PULSE 61
== END 2024-11-09 17:50 | DRG 872 ==
LOC: JER 11:29 → JERBED 14:18 → OBSVTOIN 14:48 → J4S 15:19
PROVIDERS: ADMIT Internal Medicine; ATTEND Internal Medicine
DX: A41.9 Sepsis, unspecified organism (principal); J44.0 Chronic obstructive pulmonary disease with (acute) lower respiratory infection; J44.1 Chronic obstructive pulmonary disease with (acute) exacerbation; L03.115 Cellulitis of right lower limb; F20.9 Schizophrenia, unspecified; K74.60 Unspecified cirrhosis of liver; F03.90 Unspecified dementia, unspecified severity, without behavioral disturbance, psychotic disturbance, mood disturbance, and anxiety; F31.9 Bipolar disorder, unspecified; Z87.898 Personal history of other specified conditions; R76.8 Other specified abnormal immunological findings in serum
CPT/HCPCS: 36415; 71045-TC-FY; 80048; 80053; 81003; 82803; 83605; 83735; 84484; 85025; 85610; 85730; 86803; 86850; 86900; 86901; 87040; 87086; 87389; 87522; 87637-QW; 87899; 93005; 93010; 93970-TC; 94640; 99285-25; G0378